=== PATIENT | male | born 1990 | race Two or more races ===

== ENCOUNTER 2017-05-22 23:30 | Emergency (ER) | payer BC, OTHER ==
[~2017-05-22] VITALS: Ht 175.3 cm; Wt 113.5 kg
[2017-05-22 23:34] VITALS: Ht 175.3 cm; Wt 113.5 kg
[2017-05-23] MEDS ORDERED: NORT10CA2 PO (03:16)
--- NOTE | 2017-05-23 03:21 | ERD ---
ER Documentation Chief Complaint Date/Time DATE: 05/23/17 TIME: 03:18 Chief Complaint tingling and numbness for a week HPI 26-year-old male presents here in emergency department for complaint of numbness and tingling in upper extremities and lower extremities on and off for the last one week. Patient is really worried about it, has seen primary care doctor, had lab testing done, waiting for results for this Tuesday. Patient came today since he got really worried tonight, his symptoms are on and off and intermittent. Patient denies any chest pain or palpitations. Patient denies any dizziness. Patient denies any joint deformity. ROS All systems reviewed and are negative except as per history of present illness. Medications Home Meds Active Scripts Nortriptyline Hcl* (Nortriptyline Hcl*) 10 Mg Capsule, 10 MG PO HS, #20 CAP Prov:GISELL FITZGERALD NP 05/23/17 Allergies Allergies: Coded Allergies: No Known Allergy (Unverified , 05/22/17) PMhx/Soc Medical and Surgical Hx: pt denies Medical Hx, pt denies Surgical Hx Hx Alcohol Use: No Hx Substance Use: No Hx Tobacco Use: No Smoking Status: Never smoker FmHx Family History: No coronary disease, No diabetes, No other Physical Exam Vitals Vital Signs Date Time Temp Pulse Resp B/P Pulse Ox O2 Delivery O2 Flow Rate FiO2 05/22/17 23:34 98.3 87 18 155/88 97 Physical Exam GENERAL: The patient is well developed and appropriate for usual state of health, in no apparent distress. CHEST: Clear to auscultation bilaterally. There are no rales, wheezes or rhonchi. HEART: Regular rate and rhythm. No murmurs, clicks, rubs or gallops. No S3 or S4. ABDOMEN: Soft, nontender and nondistended. Good bowel sounds. No rebound or guarding. No gross peritonitis. No gross organomegaly or masses. No Olivier sign or McBurney point tenderness. BACK: No midline or flank tenderness. EXTREMITIES: Equal pulses bilaterally. There is no peripheral clubbing, cyanosis or edema. No focal swelling or erythema. Full range of motion. Grossly neurovascularly intact. NEURO: Alert and oriented. Cranial nerves 2-12 intact. Motor strength in all 4 extremities with 5/5 strength. Sensation grossly intact. Normal speech and gait. SKIN: There is no apparent rash or petechia. The skin is warm and dry. HEMATOLOGIC AND LYMPHATIC: There is no evidence of excessive bruising or lymphedema. No gross cervical, axillary, or inguinal lymphadenopathy. Procedures/MDM Medical decision making: Patient's symptoms of paresthesias nonspecific at this time, possible anxiety related. Low suspicion for cardiopulmonary emergencies at this time, does not have any EKG, has had symptoms for 1 week now. Neurologic exam is normal. Low suspicion for neurologic emergencies at this time. No paralysis noted. Able to move joint without any difficulty. Symptoms are intermittent. Patient had blood test done with primary care doctor, was advised to follow up on it, she was given prescription for nitroglycerin for possible treatment, patient was advised to return to emergency department for any worsening symptoms. Disposition: Home. Stable. Departure Diagnosis: Primary Impression: Paresthesias Condition: Stable Patient Instructions: GISELL Hanson NP May 23, 2017 03:21
[2017-05-23 03:22] VITALS: TEMP 98.2
[2017-05-23 04:39] VITALS: BP 128/88; PULSE 62; RESP 20
== END 2017-05-23 04:23 | disposition home or self-care (01) ==
LOC: FTE 23:30
DX: R20.2 Paresthesia of skin (principal)
CPT/HCPCS: 99283